=== PATIENT | female | born 1965 | race Caucasian/White ===

== ENCOUNTER 2016-12-27 20:20 | Emergency (ER) | payer OTHER ==
[~2016-12-27] VITALS: Ht 157.5 cm; Wt 90.7 kg
[~2016-12-27 20:20] MED LIST: ACYCLOVIR400 M1; AMLODIPINE BENAZEPRIL; ANUCORT HC25 MG; ATIVAN1 M1; AVALIDE 12.5 MG1 TAB; CATAPRES0.2 M1; CELEXA20 MG PO; CYMBALTA60 MG PO; DILAUDID2 MG PO; DILAUDID8 M1 PO; DOCUSATE100 MG; DULOXETINE HYDR60 MG; FERATE; GABAPENTIN300 MG PO; IBU-8800 MG; LAMISIL250 MG PO; LEXAPRO20 MG; MORPHINE SULFAT30 M1 PO; NORCO 10/325 MG1 TAB GT; NORVASC10 MG PO; OXYCONTIN30 MG PO; ROBAXIN500 M1 PO; SOMA250 MG PO
[2016-12-27 21:00] VITALS: BP 131/97
--- NOTE | 2016-12-27 21:00 | NUR ---
PATIENT TO BED 6.
--- NOTE | 2016-12-27 21:00 | NUR ---
51/F BIB SELF W/C/O ABCESS TO BUTTOCK [id number]. DENIES N/V/D; SKIN IS PINK/WARM/DRY; AAOX4 WITH EVEN AND STEADY GAIT; LUNGS CLEAR BL; HR EVEN AND REGULAR; PT DENIES ANY FEVER, CP, SOB, OR COUGH AT THIS TIME; PATIENT STATES PAIN OF 7/10 AT THIS TIME; VSS; PATIENT POSITIONED FOR COMFORT; HOB ELEVATED; BEDRAILS UP X2; BED DOWN. ER MD MADE AWARE OF PT STATUS.
--- NOTE | 2016-12-27 21:03 | NUR ---
Patient being evaluated by physician at bedside.
[2016-12-27 21:43] VITALS: BP 131/97
--- NOTE | 2016-12-27 21:44 | NUR ---
Patient discharged with v/s stable. Written and verbal after care instructions given and explained. Patient alert, oriented and verbalized understanding of instructions. Ambulatory with steady gait. All questions addressed prior to discharge. ID band removed. Patient advised to follow up with PMD. Rx of ACYCLOVIR, BACITRACIN 500UNITS OINTMENT TID, TYLEMOL WITH CODEINE given. Patient educated on indication of medication including possible reaction and side effects. Opportunity to ask questions provided and answered.
== END 2016-12-27 21:44 | disposition home or self-care (01) ==
LOC: MED 20:20
DX: M25.551 Pain in right hip (principal); R21 Rash and other nonspecific skin eruption; I10 Essential (primary) hypertension; Z88.1 Allergy status to other antibiotic agents; Z88.5 Allergy status to narcotic agent; Z88.8 Allergy status to other drugs, medicaments and biological substances

== ENCOUNTER 2019-06-22 23:47 | Emergency (ER) | payer OTHER ==
[~2019-06-22] VITALS: Ht 160 cm; Wt 88.5 kg
[~2019-06-22 23:47] MED LIST changes: -ACYCLOVIR400 M1; -ANUCORT HC25 MG; -ATIVAN1 M1; -AVALIDE 12.5 MG1 TAB; -CATAPRES0.2 M1; -CELEXA20 MG PO; -CYMBALTA60 MG PO; -DILAUDID2 MG PO; -DILAUDID8 M1 PO; -DOCUSATE100 MG; +DULO60EC85; -DULOXETINE HYDR60 MG; -FERATE; -GABAPENTIN300 MG PO; +HYDR2TAB6 PO; -IBU-8800 MG; -LAMISIL250 MG PO; -LEXAPRO20 MG; -MORPHINE SULFAT30 M1 PO; -NORCO 10/325 MG1 TAB GT; -NORVASC10 MG PO; -OXYCONTIN30 MG PO; -ROBAXIN500 M1 PO; -SOMA250 MG PO
[2019-06-22 23:50] VITALS: BP 150/90
--- NOTE | 2019-06-22 23:50 | NUR ---
TO BED # 05 AMBULATORY
--- NOTE | 2019-06-22 23:55 | NUR ---
53 YO FEMALES COMES TO ED FOR C/O LOWER BACK PAIN X 2 DAYS. PT ALSO C/O FREQUENT URINATION. PT DENIES FEVER/CHILLS. DENIES N/V/D. PT AMBULATORY WITH STEADY GAIT, DENIES NUMBNESS TINGLING. LADARIUSRNEY LOCKED IN LOWEST POSITION HX: HLD, HTN, RA, CHRONIC FIBROMYALGIA ALLERGIES: MORPHINE -HIVES, HCTZ - SWELLING LMP: MENOPAUSE
--- NOTE | 2019-06-23 00:48 | NUR ---
PT RETURN FROM CT
[2019-06-23 01:08] LABS: APPEARANCE,URINE CLEAR (CLEAR); BILIRUBIN,URINE NEGATIVE (NEGATIVE); BLOOD, URINE NEGATIVE (NEGATIVE); COLOR,URINE YELLOW (YELLOW); LEUKOCYTE ESTERASE ,URINE NEGATIVE (NEGATIVE); NITRITE, URINE NEGATIVE (NEGATIVE); PH,URINE 6.5 (5.0-9.0); UGLUCOSE NEGATIVE (NEGATIVE)
[2019-06-23 01:25] LABS: RBC,URINE NONE SEEN /HPF (0-5); WBC,URINE 0-5 /HPF (0-5)
--- NOTE | 2019-06-23 02:15 | NUR ---
Patient discharged with v/s stable. Written and verbal after care instructions given and explained. Patient verbalized understanding. Ambulatory with steady gait. All questions addressed prior to discharge. Advised to follow up with PMD.
[2019-06-23 02:19] VITALS: BP 142/62
== END 2019-06-23 02:15 | disposition home or self-care (01) ==
LOC: MED 23:47
DX: R35.0 Frequency of micturition (principal); M54.5 Low back pain; R30.0 Dysuria; I10 Essential (primary) hypertension; E78.5 Hyperlipidemia, unspecified; M06.9 Rheumatoid arthritis, unspecified; M79.7 Fibromyalgia; Z79.899 Other long term (current) drug therapy; Z88.1 Allergy status to other antibiotic agents; Z88.6 Allergy status to analgesic agent; Z79.891 Long term (current) use of opiate analgesic
CPT/HCPCS: 72131; 81001; 87086; 99284

== ENCOUNTER 2022-01-16 15:10 | Emergency (ER) | payer OTHER ==
[~2022-01-16] VITALS: Ht 157.5 cm; Wt 93.0 kg
[2022-01-16 15:24] VITALS: BP 160/107
--- NOTE | 2022-01-16 15:37 | NUR ---
PT AMBULATED TO BED 8.
[2022-01-16] MEDS ORDERED: HYDROcodone/APAP 7.5/325 MG 1 TAB PO ONE ×2 (16:05→20:55)
--- NOTE | 2022-01-16 17:03 | NUR ---
56 Y/O F C/O ABSCESS PAIN 6/10 FOR 4 DAYS ON HER MID BUTTOCK AREA. ALLERGIES: MDX-HYDROCHLOROTHIAZIDE, AMOXICILIN PMH: HTN, HLD, DICES HERNIATION, OVARY CYST
--- NOTE | 2022-01-16 17:09 | NUR ---
LAB AT BEDSIDE.
[2022-01-16 17:28] LABS: BASOPHILS # (AUTO) 0.1 K/uL (0.00-0.22); BASOPHILS % (AUTO) 0.8 % (0.0-2.0); EOSINOPHILS # (AUTO) 0.1 K/uL (0-0.4); EOSINOPHILS % (AUTO) 0.8 % (0.0-4.0); HEMATOCRIT 48.5 % (36-48); HEMOGLOBIN 16.6 g/dL (12.0-16.0); LYMPHOCYTES # (AUTO) 0.8 K/uL (2.5-16.5); LYMPHOCYTES % (AUTO) 5.5 % (20.5-51.1); MEAN CORPUSCULAR HEMOGLOBIN 33 pg (27-31); MEAN CORPUSCULAR HGB CONC 34 g/dL (33-37); MEAN CORPUSCULAR VOLUME 96.9 fL (80-94); MONOCYTES % (AUTO) 0.2 % (1.7-9.3); NEUTROPHILS # (AUTO) 13.3 K/uL (1.8-7.7); NEUTROPHILS % (AUTO) 92.7 % (42.2-75.2); PLATELET COUNT (AUTO) 331 K/uL (140-450); RED BLOOD CELL COUNT(AUTO) 5.01 MIL/uL (4.20-5.40); RED CELL DISTRIBUTION WIDTH 14.5 % (11.6-13.7); WHITE BLOOD COUNT (AUTO) 14.3 K/uL (4.8-10.8)
[2022-01-16 17:46] LABS: ALBUMIN 3.1 g/dL (3.4-5.0); ANION GAP 9.7 (8-16); CARBON DIOXIDE 31.6 mmol/L (21-32); CREATININE 0.8 mg/dL (0.6-1.3); POTASSIUM 4.3 mmol/L (3.5-5.1); TOTAL BILIRUBIN 0.5 mg/dL (0.0-1.0)
--- NOTE | 2022-01-16 17:58 | NUR ---
PT TO CT SCAN VIA WHEELCHAIR.
--- NOTE | 2022-01-16 19:31 | NUR ---
REPORT RECEIVED FROM MAURICIO AUSTIN. CONTINUITY OF PT CARE AT THIS TIME.
--- NOTE | 2022-01-16 19:32 | NUR ---
GAVE REPORT TO HODAN CAMP.
--- NOTE | 2022-01-16 19:37 | NUR ---
PT LAYING IN BED IN L LATERAL POSITION. PT REPORTS PAIN IS IMPROVING AT THIS TIME. PT CONNECTED TO MONITOR W VSS. BED LOCKED IN LOWEST POSITION W X2 SIDERAIL UP FOR PT SAFETY. BREATHING EVEN AND UNLABORED. NAD NOTED, WILL CONTINUE TO MONITOR.
[2022-01-16] MEDS ORDERED: HYDROmorphone PFS 2 MG/ML SYR IVP SCH (19:50)
[2022-01-16] MEDS ORDERED: LIDOCAINE 2% 1000 MG/50 ML VIAL INJ ONE ×2 (19:50→20:20)
[2022-01-16] MEDS ORDERED: NACL 0.9% 1,000 ML IV ONE (19:50)
[2022-01-16] MEDS ORDERED: LIDOCAINE MPF 1% 10 MG/ML VIAL INJ ONE (19:50)
[2022-01-16] MEDS ORDERED: METR-435 PO (20:01)
[2022-01-16] MEDS ORDERED: ACET-8386 PO (20:01)
[2022-01-16] MEDS ORDERED: CIPR500T4 PO (20:01)
[2022-01-16] MEDS ORDERED: LIDOCAINE 2% 1000 MG/50 ML VIAL INJ SCH (20:10)
--- NOTE | 2022-01-16 20:41 | NUR ---
PT AMBULATED TO BATHROOM W STEADY GAIT + USE OF CANE PER BASELINE.
[2022-01-16] MEDS ORDERED: metroNIDAZOLE 500 MG/NS PREMIX 100 ML IV ONE (21:45)
[2022-01-16] MEDS ORDERED: CIPROFLOXACIN 250 MG TAB PO ONE (21:50)
--- NOTE | 2022-01-16 21:50 | NUR ---
DR. Navjot SHARMA AT BEDSIDE
[2022-01-16] MEDS ORDERED: HYDROmorphone 1 MG/ML AMP ONE (21:53)
--- NOTE | 2022-01-16 22:03 | NUR ---
DR SHARMA AT [facility] FOR PT PROCEDURE.
--- NOTE | 2022-01-16 22:31 | NUR ---
PT REPORTS FEELING SO MUCH BETTER ABLE TO MOVE TURN AND SIT BETTER.
[2022-01-16 22:32] VITALS: BP 133/78
--- NOTE | 2022-01-16 22:32 | NUR ---
Patient discharged with v/s stable. Written and verbal after care instructions given and explained. Patient alert, oriented and verbalized understanding of instructions. Ambulatory with steady gait. All questions addressed prior to discharge. ID band removed. Patient advised to follow up with PMD. Rx of CIPRO, METRODINAZOLE given. Patient educated on indication of medication including possible reaction and side effects. Opportunity to ask questions provided and answered.
== END 2022-01-16 22:32 | disposition home or self-care (01) ==
LOC: MED 15:10
DX: K61.0 Anal abscess (principal); I10 Essential (primary) hypertension; Z79.899 Other long term (current) drug therapy; Z88.1 Allergy status to other antibiotic agents; Z88.5 Allergy status to narcotic agent
CPT/HCPCS: 10060; 36415; 72193; 80053; 81025; 85025; 96361; 96374; 99285; J1170; J2001; J7030; Q9967; J3490

== ENCOUNTER 2022-01-20 18:47 | Inpatient (IN) | payer OTHER, SELFPAY ==
[~2022-01-20] VITALS: Ht 157.5 cm; Wt 92.5 kg
[~2022-01-20 18:47] MED LIST changes: +CIPR500T4 PO; +METR-435 PO
[2022-01-20 19:27] VITALS: BP 137/81
[2022-01-20] MEDS ORDERED: LEVOFLOXACIN 750 MG/D5W PREMIX 150 ML IV ONE (23:10)
[2022-01-20] MEDS ORDERED: ONDANSETRON 4 MG/2 ML VIAL IVP ONE (23:10)
[2022-01-20] MEDS ORDERED: fentaNYL citrate 0.05 MG/ML VIAL IVP ONE (23:10)
[2022-01-20 23:32] LABS: BASOPHILS # (AUTO) 0.1 K/uL (0.00-0.22); BASOPHILS % (AUTO) 0.9 % (0.0-2.0); EOSINOPHILS # (AUTO) 0.1 K/uL (0-0.4); EOSINOPHILS % (AUTO) 1.2 % (0.0-4.0); HEMOGLOBIN 15.5 g/dL (12.0-16.0); LYMPHOCYTES # (AUTO) 3.2 K/uL (2.5-16.5); LYMPHOCYTES % (AUTO) 27.1 % (20.5-51.1); MEAN CORPUSCULAR HEMOGLOBIN 33 pg (27-31); MEAN CORPUSCULAR HGB CONC 34 g/dL (33-37); MONOCYTES % (AUTO) 8.7 % (1.7-9.3); NEUTROPHILS # (AUTO) 7.4 K/uL (1.8-7.7); NEUTROPHILS % (AUTO) 62.1 % (42.2-75.2); PLATELET COUNT (AUTO) 345 K/uL (140-450); RED BLOOD CELL COUNT(AUTO) 4.69 MIL/uL (4.20-5.40); RED CELL DISTRIBUTION WIDTH 14.2 % (11.6-13.7); WHITE BLOOD COUNT (AUTO) 11.9 K/uL (4.8-10.8)
[2022-01-20 23:50] LABS: ANION GAP 7.7 (8-16); CARBON DIOXIDE 30.4 mmol/L (21-32); CREATININE 0.8 mg/dL (0.6-1.3); POTASSIUM 3.1 mmol/L (3.5-5.1); TOTAL BILIRUBIN 0.4 mg/dL (0.0-1.0)
[2022-01-21] MEDS ORDERED: ONDANSETRON 4 MG/2 ML VIAL IM/IVP PRN (02:00)
[2022-01-21] MEDS ORDERED: MAGNESIUM OXIDE 400 MG TAB PO PRN (02:00)
[2022-01-21] MEDS ORDERED: POTASSIUM CHLORIDE 10 MEQ TABER PO PRN (02:00)
[2022-01-21] MEDS ORDERED: DOCUSATE SODIUM 100 MG GELCAP PO PRN (02:00)
[2022-01-21] MEDS ORDERED: ACETAMINOPHEN 325 MG TAB PO PRN (02:00)
[2022-01-21] MEDS ORDERED: SODIUM PHOS / POTASSIUM PHOS 1 PKT PDR PO PRN (02:00)
[2022-01-21 02:12] LABS: APPEARANCE,URINE CLOUDY (CLEAR); BILIRUBIN,URINE NEGATIVE (NEGATIVE); BLOOD, URINE 3+ (NEGATIVE); COLOR,URINE YELLOW (YELLOW); LEUKOCYTE ESTERASE ,URINE NEGATIVE (NEGATIVE); NITRITE, URINE NEGATIVE (NEGATIVE); PH,URINE 6.5 (5.0-9.0); UGLUCOSE NEGATIVE (NEGATIVE)
[2022-01-21 02:21] LABS: RBC,URINE 0-5 /HPF (0-5); WBC,URINE 0-5 /HPF (0-5)
[2022-01-21 02:26] LABS: MAGNESIUM 1.7 mg/dL (1.8-2.4); PHOSPHORUS 2.8 mg/dL (2.5-4.9)
[2022-01-21] MEDS: NACL 0.9% 1,000 ML IV SCH ×2 (02:28→18:40)
[2022-01-21] MEDS ORDERED: HYDR2TAB6 PO (02:57)
[2022-01-21] MEDS ORDERED: AMLO2.5T PO (02:57)
[2022-01-21] MEDS ORDERED: BUS5 PO (02:57)
[2022-01-21] MEDS ORDERED: CYCL-711 PO (02:57)
[2022-01-21 04:00] VITALS: BP 135/70
[2022-01-21 08:00] VITALS: BP 120/75
[2022-01-21] MEDS: PANTOPRAZOLE 40 MG TABEC PO SCH (09:01)
[2022-01-21] MEDS: oxyCODONE/APAP 5/325 MG 1 TAB TAB PO PRN ×3 (10:06→22:30)
[2022-01-21 12:00] VITALS: BP 105/70
[2022-01-21 16:00] VITALS: BP 104/74
[2022-01-21 20:00] VITALS: BP 99/66
[2022-01-21] MEDS: LEVOFLOXACIN 500 MG/D5W PREMIX 100 ML IV SCH (20:33)
[2022-01-22 04:00] VITALS: BP 96/71
[2022-01-22 07:19] LABS: BASOPHILS # (AUTO) 0.1 K/uL (0.00-0.22); BASOPHILS % (AUTO) 0.9 % (0.0-2.0); EOSINOPHILS # (AUTO) 0.2 K/uL (0-0.4); EOSINOPHILS % (AUTO) 2.2 % (0.0-4.0); HEMATOCRIT 44.6 % (36-48); LYMPHOCYTES # (AUTO) 3.1 K/uL (2.5-16.5); LYMPHOCYTES % (AUTO) 29.3 % (20.5-51.1); MEAN CORPUSCULAR HEMOGLOBIN 33 pg (27-31); MEAN CORPUSCULAR HGB CONC 34 g/dL (33-37); MEAN CORPUSCULAR VOLUME 97.9 fL (80-94); MONOCYTES # (AUTO) 1.1 K/uL (0.8-1.0); MONOCYTES % (AUTO) 10.4 % (1.7-9.3); NEUTROPHILS # (AUTO) 6.1 K/uL (1.8-7.7); NEUTROPHILS % (AUTO) 57.2 % (42.2-75.2); PLATELET COUNT (AUTO) 326 K/uL (140-450); RED BLOOD CELL COUNT(AUTO) 4.55 MIL/uL (4.20-5.40); RED CELL DISTRIBUTION WIDTH 14.6 % (11.6-13.7); WHITE BLOOD COUNT (AUTO) 10.7 K/uL (4.8-10.8)
[2022-01-22 07:34] LABS: ANION GAP 8.7 (8-16); CARBON DIOXIDE 29.4 mmol/L (21-32); CREATININE 0.7 mg/dL (0.6-1.3); POTASSIUM 4.1 mmol/L (3.5-5.1)
[2022-01-22 09:18] VITALS: BP 110/76
[2022-01-22] MEDS: PANTOPRAZOLE 40 MG TABEC PO SCH (09:59)
[2022-01-22] MEDS: NACL 0.9% 1,000 ML IV SCH (11:38)
[2022-01-22] MEDS ORDERED: MAGNESIUM OXIDE 400 MG TAB PO SCH (11:52)
[2022-01-22 12:00] VITALS: BP 102/69
[2022-01-22] MEDS: oxyCODONE/APAP 5/325 MG 1 TAB TAB PO PRN (12:08)
[2022-01-22 16:00] VITALS: BP 102/66
[2022-01-22 20:00] VITALS: BP 104/65
[2022-01-22] MEDS: LEVOFLOXACIN 500 MG/D5W PREMIX 100 ML IV SCH (20:32)
[2022-01-23] MEDS: oxyCODONE/APAP 5/325 MG 1 TAB TAB PO PRN (03:01)
[2022-01-23 04:00] VITALS: BP 123/67
[2022-01-23] MEDS: NACL 0.9% 1,000 ML IV SCH ×2 (04:00→20:40)
[2022-01-23 06:45] LABS: BASOPHILS % (AUTO) 0.3 % (0.0-2.0); EOSINOPHILS # (AUTO) 0.3 K/uL (0-0.4); EOSINOPHILS % (AUTO) 2.7 % (0.0-4.0); HEMOGLOBIN 14.6 g/dL (12.0-16.0); LYMPHOCYTES # (AUTO) 3.5 K/uL (2.5-16.5); LYMPHOCYTES % (AUTO) 29.2 % (20.5-51.1); MEAN CORPUSCULAR HEMOGLOBIN 33 pg (27-31); MEAN CORPUSCULAR HGB CONC 34 g/dL (33-37); MEAN CORPUSCULAR VOLUME 98.1 fL (80-94); MONOCYTES # (AUTO) 0.9 K/uL (0.8-1.0); MONOCYTES % (AUTO) 7.6 % (1.7-9.3); NEUTROPHILS # (AUTO) 7.3 K/uL (1.8-7.7); NEUTROPHILS % (AUTO) 60.2 % (42.2-75.2); PLATELET COUNT (AUTO) 318 K/uL (140-450); RED BLOOD CELL COUNT(AUTO) 4.38 MIL/uL (4.20-5.40); RED CELL DISTRIBUTION WIDTH 14.6 % (11.6-13.7); WHITE BLOOD COUNT (AUTO) 12.1 K/uL (4.8-10.8)
[2022-01-23 06:59] LABS: PROTHROMBIN TIME 10.4 secs (10.8-13.4)
[2022-01-23 07:01] LABS: ANION GAP 8.8 (8-16); CARBON DIOXIDE 31.5 mmol/L (21-32); CREATININE 0.7 mg/dL (0.6-1.3); POTASSIUM 4.3 mmol/L (3.5-5.1)
[2022-01-23 07:03] LABS: MAGNESIUM 1.8 mg/dL (1.8-2.4); PHOSPHORUS 3.1 mg/dL (2.5-4.9)
[2022-01-23 07:56] VITALS: BP 111/68
[2022-01-23] MEDS: PANTOPRAZOLE 40 MG TABEC PO SCH (08:19)
[2022-01-23] MEDS ORDERED: ONDANSETRON 4 MG/2 ML VIAL IVP PRN (09:25)
[2022-01-23] MEDS ORDERED: BUPIVACAINE-MPF 0.25% 30 ML VIAL INJ ONE (09:31)
[2022-01-23] MEDS ORDERED: LIDOCAINE 1% 500 MG/50 ML VIAL ONE (09:31)
[2022-01-23] MEDS ORDERED: fentaNYL citrate 0.05 MG/ML VIAL ONE (09:35)
[2022-01-23] MEDS ORDERED: KETOROLAC 30 MG/ML VIAL ONE (09:35)
[2022-01-23] MEDS ORDERED: PROPOFOL 200 MG/20 ML VIAL IV ONE ×2 (09:35→10:07)
[2022-01-23] MEDS ORDERED: ONDANSETRON 4 MG/2 ML VIAL ONE (09:35)
[2022-01-23] MEDS ORDERED: DESFLURANE 240 ML BTL INH ONE (09:38)
[2022-01-23] MEDS ORDERED: HYDROGEN PEROXIDE 3% 240 ML BTL TP ONE (09:50)
[2022-01-23] MEDS ORDERED: HYDROcodone/APAP 5/325 MG 1 TAB TAB PO PRN (09:55)
[2022-01-23] MEDS ORDERED: HYDROmorphone PFS 2 MG/ML SYR ONE ×2 (10:04→10:28)
[2022-01-23] MEDS: HYDROmorphone 1 MG/ML AMP IVP PRN ×6 (10:30→21:16)
[2022-01-23 12:00] VITALS: BP 108/72
[2022-01-23 16:02] VITALS: BP 112/70
[2022-01-23 20:00] VITALS: BP 108/68
[2022-01-23] MEDS: LEVOFLOXACIN 500 MG/D5W PREMIX 100 ML IV SCH (20:24)
[2022-01-24] MEDS: HYDROmorphone 1 MG/ML AMP IVP PRN (03:35)
[2022-01-24 04:00] VITALS: BP 136/83
[2022-01-24 07:12] LABS: ANION GAP 10.7 (8-16); CARBON DIOXIDE 28.6 mmol/L (21-32); CREATININE 0.8 mg/dL (0.6-1.3); POTASSIUM 4.3 mmol/L (3.5-5.1)
[2022-01-24 07:18] LABS: BASOPHILS # (AUTO) 0.1 K/uL (0.00-0.22); BASOPHILS % (AUTO) 0.6 % (0.0-2.0); EOSINOPHILS # (AUTO) 0.2 K/uL (0-0.4); EOSINOPHILS % (AUTO) 1.8 % (0.0-4.0); HEMATOCRIT 41.7 % (36-48); LYMPHOCYTES # (AUTO) 3.1 K/uL (2.5-16.5); LYMPHOCYTES % (AUTO) 27.5 % (20.5-51.1); MEAN CORPUSCULAR HEMOGLOBIN 33 pg (27-31); MEAN CORPUSCULAR HGB CONC 33 g/dL (33-37); MEAN CORPUSCULAR VOLUME 98.3 fL (80-94); MONOCYTES % (AUTO) 8.4 % (1.7-9.3); NEUTROPHILS # (AUTO) 7.1 K/uL (1.8-7.7); NEUTROPHILS % (AUTO) 61.7 % (42.2-75.2); PLATELET COUNT (AUTO) 315 K/uL (140-450); RED BLOOD CELL COUNT(AUTO) 4.25 MIL/uL (4.20-5.40); RED CELL DISTRIBUTION WIDTH 14.4 % (11.6-13.7); WHITE BLOOD COUNT (AUTO) 11.5 K/uL (4.8-10.8)
[2022-01-24 07:57] VITALS: BP 112/75
[2022-01-24] MEDS: PANTOPRAZOLE 40 MG TABEC PO SCH (08:49)
[2022-01-24] MEDS ORDERED: HYDR2TAB6 PO (08:57)
[2022-01-24] MEDS ORDERED: CLIN300C2 PO (08:57)
[2022-01-24] MEDS ORDERED: LEVO750T51 PO (08:57)
[2022-01-24 09:48] VITALS: BP 112/75
[2022-01-24 09:52] VITALS: BP 112/75
== END 2022-01-24 11:06 | disposition home or self-care (01) | DRG 854 ==
LOC: MED 18:47 → MTU 01-21 02:02
PROVIDERS: ADMIT Hospitalist; ATTEND Hospitalist
PROC: 0D9Q0ZZ Drainage of Anus, Open Approach (ICD-10-PCS; principal; 2022-01-23 09:35)
DX: A41.9 Sepsis, unspecified organism (principal); L02.215 Cutaneous abscess of perineum; E44.0 Moderate protein-calorie malnutrition; E24.9 Cushing's syndrome, unspecified; K64.9 Unspecified hemorrhoids; M79.7 Fibromyalgia; E87.6 Hypokalemia; E83.42 Hypomagnesemia; K45.8 Other specified abdominal hernia without obstruction or gangrene; Z20.822 Contact with and (suspected) exposure to COVID-19; M06.9 Rheumatoid arthritis, unspecified; E78.5 Hyperlipidemia, unspecified; I10 Essential (primary) hypertension; Z88.5 Allergy status to narcotic agent; Z88.0 Allergy status to penicillin; Z88.8 Allergy status to other drugs, medicaments and biological substances; Z68.37 Body mass index [BMI] 37.0-37.9, adult
CPT/HCPCS: 36415; 71045; 80048; 80053; 81001; 83605; 83690; 83735; 84100; 85025; 85610; 85730; 87040; 87081; 87086; 93005; 96365; 96375; 99285; J1170; J1885; J1956; J2001; J2405; J2704; J3010; J3490

== ENCOUNTER 2022-08-05 17:51 | Emergency (ER) | payer OTHER ==
[~2022-08-05] VITALS: Ht 157.5 cm; Wt 86.2 kg
[~2022-08-05 17:51] MED LIST changes: +AMLO2.5T PO; +BUS5 PO; -CIPR500T4 PO; +CLIN300C2 PO; +CYCL-711 PO; +LEVO750T75 PO; -METR-435 PO
[2022-08-05 17:55] VITALS: BP 173/93
--- NOTE | 2022-08-05 18:00 | NUR ---
57 y/o female, c/o bl eye pain, headache, dizzy, cp started with right and now radiates to left. pt states "I think the infection is in my face now because I have a headache and pressure between my eyes". 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 a&o x4 with even and steady gait. lungs clear bl, heart rate even and regular. pmh: htn allergy: amoxicillin, hydrochlorothiazide med: hydromorphone 4mg (no relief)
[2022-08-05] MEDS ORDERED: MECLIZINE 25 MG TAB PO ONE (19:20)
[2022-08-05] MEDS ORDERED: ERYT5OIN58 OP (20:06)
[2022-08-05] MEDS ORDERED: MECL-303 PO (20:06)
--- NOTE | 2022-08-05 20:45 | NUR ---
Patient discharged with v/s stable. Written and verbal after care instructions given and explained. Patient alert, oriented and verbalized understanding of instructions. Ambulatory with steady gait. All questions addressed prior to discharge. ID band removed. Patient advised to follow up with PMD. Rx of erythromycin, meclizine (sent) given. Patient educated on indication of medication including possible reaction and side effects. Opportunity to ask questions provided and answered.
--- NOTE | 2022-08-05 20:45 | NUR ---
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
[2022-08-05 20:46] VITALS: BP 173/93
[2022-08-05] MEDS ORDERED: MECLIZINE 25 MG TAB ONE (20:46)
== END 2022-08-05 20:42 | disposition home or self-care (01) ==
LOC: MED 17:51
DX: H10.9 Unspecified conjunctivitis (principal); M54.50 Low back pain, unspecified; I10 Essential (primary) hypertension; E78.00 Pure hypercholesterolemia, unspecified; Z88.5 Allergy status to narcotic agent; Z88.1 Allergy status to other antibiotic agents; Z88.8 Allergy status to other drugs, medicaments and biological substances
CPT/HCPCS: 93005; 99283; J8597